=== PATIENT | female | born 1945 | race Caucasian/White ===

== ENCOUNTER 2020-05-05 22:11 | Observation (INO) | payer OTHER ==
[2020-05-05] MEDS ORDERED: Ondansetron PF 4 MG/2 ML Vial ONE (22:56)
[2020-05-05 23:01] LABS: Actual Bicarbonate (HCO3v) 21 mEq/L (22-28); Base Excess -2.9 mEq/L (-2.0 to +3.0); Chloride (VBG) 95 mmol/L (98-106); Hemoglobin (Hb) 17.4 g/dL (11.7-16.1); Potassium (VBG) 3.23 mmol/L (3.70-5.30); Puncture Site Other Site; Sodium 137.5 mmol/L (133-146)
[2020-05-05] MEDS ORDERED: Magnesium 2 GM/50 ML BAG (IN WATER) ONE (23:12)
[2020-05-05 23:14] LABS: ALT (SGPT) 19 U/L (8-55); AST (SGOT) 15 U/L (5-34); Albumin 4.6 g/dL (3.4-4.8); Alkaline Phosphatase 74 U/L (40-110); Anion Gap 24 mmol/L (10-20); BUN (Urea Nitrogen) 22 mg/dL (9.8-20.1); Bilirubin, Total 0.8 mg/dL (0.2-1.2); Calc. Creatinine Clearance 0 mL/min (70-130); Calcium 9.6 mg/dL (7.8-10.44); Carbon Dioxide 21 mmol/L (23-31); Chloride 96 mmol/L (98-107); Globulin 2.4 g/dL (2.4-3.5); Glucose 210 mg/dL (83-110); Potassium 3.3 mmol/L (3.5-5.1); Sodium 138 mmol/L (136-145)
[2020-05-05 23:45] LABS: #Monocytes 0.4 10x3/uL (0.0-1.1); #Neutrophils 6.1 10x3/uL (1.5-8.4); %Basophils 0.5 % (0.0-2.0); %Eosinophils 0.2 % (0.0-6.0); %Lymphocytes 18.1 % (18.0-47.0); %Neutrophils 75.6 % (40.0-75.0); Hemoglobin 16.4 g/dL (12.0-15.5); Mean Corpuscular HGB CONC 34.1 g/dL (32.0-36.0); Mean Corpuscular Hemoglobin 30.7 pg (27.0-33.0); Mean Corpuscular Volume 89.9 fl (81.6-98.3); Mean Platelet Volume 9.5 fl (7.4-10.4); Platelet Count 310 10x3/uL (150-450); RBC Distribution Width 12.3 % (11.5-14.5); Red Blood Cell (RBC) Count 5.35 10x6/uL (3.90-5.03)
[2020-05-06] MEDS ORDERED: Potassium Chloride 20 MEQ TAB ONE (00:40)
[2020-05-06 00:49] LABS: SARS-CoV-2 NAA Rapid Test Not Detected (NotDetected)
[2020-05-06] MEDS ORDERED: Insulin Regular 300 UNITS/3 ML VIAL ONE (01:00)
[2020-05-06] MEDS ORDERED: Dextrose 50% Abboject 50 ML SYRINGE SLOW IVP PRN (02:04)
[2020-05-06] MEDS ORDERED: Acetaminophen 325 MG TAB PO PRN (02:04)
[2020-05-06] MEDS ORDERED: Senokot S 8.6-50 MG TAB PO PRN (02:04)
[2020-05-06] MEDS ORDERED: HumaLOG 300 UNITS/3 ML VIAL SC PRN (02:04)
[2020-05-06] MEDS ORDERED: Calcium Carbonate 500 MG ChewTAB PO PRN (02:04)
[2020-05-06] MEDS ORDERED: Dextrose 5% in Water 1,000 ML IV PRN (02:04)
[2020-05-06] MEDS ORDERED: Guaifenesin DM 100-10/5 ML UDCUP PO PRN (02:04)
[2020-05-06] MEDS ORDERED: Loratadine 10 MG TAB PO PRN (02:09)
[2020-05-06] MEDS ORDERED: Electrolyte Replacement Protocol 1 EACH FS PRN (02:15)
[2020-05-06] MEDS ORDERED: Dextrose 5 % And 0.9 % NaCl 1,000 ML IV SCH (02:15)
[2020-05-06] MEDS ORDERED: Promethazine HCl 12.5 MG in Sodium Chloride 0.9% 50 ML IVPB PRN (02:20)
[2020-05-06] MEDS ORDERED: Potassium Chloride 20 MEQ TAB PO SCH ×2 (03:15→08:30)
[2020-05-06 05:57] LABS: Anion Gap 18 mmol/L (10-20); BUN (Urea Nitrogen) 16 mg/dL (9.8-20.1); Calc. Creatinine Clearance 0 mL/min (70-130); Calcium 8.8 mg/dL (7.8-10.44); Carbon Dioxide 26 mmol/L (23-31); Chloride 99 mmol/L (98-107); Glucose 101 mg/dL (83-110); Phosphorus 3.5 mg/dL (2.3-4.7); Potassium 3.2 mmol/L (3.5-5.1); Sodium 140 mmol/L (136-145)
[2020-05-06 06:47] VITALS: BP 122/47; TEMP 98.4
[2020-05-06] MEDS ORDERED: Magnesium 2 GM/50 ML 2 GM in Premix Bag 1 BAG IVPB SCH (08:00)
[2020-05-06] MEDS ORDERED: Atenolol 50 MG TAB PO SCH (09:00)
[2020-05-06] MEDS ORDERED: Lantus 1000 UNITS/10 ML VIAL SC SCH (09:00)
[2020-05-06] MEDS ORDERED: Enoxaparin Sodium 40 MG/0.4 ML SYRINGE SC SCH (09:00)
[2020-05-06] MEDS ORDERED: Alogliptin 6.25 MG TAB PO SCH (09:00)
[2020-05-06] MEDS ORDERED: Famotidine/PF 20 mg/2ml Vial SLOW IVP SCH (09:00)
[2020-05-06] MEDS ORDERED: Aspirin 81 mg Enteric Coated Tablet PO SCH (09:00)
[2020-05-06] MEDS ORDERED: Valsartan 80 MG TAB PO SCH (09:00)
[2020-05-06 09:56] VITALS: BMI 31.6
[2020-05-06 10:45] LABS: Anion Gap 15 mmol/L (10-20)
[2020-05-06 11:02] LABS: BUN (Urea Nitrogen) 13 mg/dL (9.8-20.1); Calc. Creatinine Clearance 81 mL/min (70-130); Calcium 8.6 mg/dL (7.8-10.44); Carbon Dioxide 26 mmol/L (23-31); Chloride 99 mmol/L (98-107); Glucose 231 mg/dL (83-110); Phosphorus 2.6 mg/dL (2.3-4.7); Potassium 4.2 mmol/L (3.5-5.1); Sodium 136 mmol/L (136-145)
[2020-05-06] MEDS ORDERED: Atorvastatin Calcium 40 MG TAB PO SCH (21:00)
== END 2020-05-06 15:37 | disposition home or self-care (01) ==
LOC: CSHERS 22:11 → CSHTELE 05-06 02:04 → UNDOADMOB 05-06 02:38 → CSHTELE 05-06 02:38 → INTOOBSV 05-06 02:38
PROVIDERS: ADMIT Student in an Organized Health Care Education/Training Program; ATTEND Internal Medicine
DX: E08.10 Diabetes mellitus due to underlying condition with ketoacidosis without coma (principal); E46 Unspecified protein-calorie malnutrition; E87.0 Hyperosmolality and hypernatremia; E87.6 Hypokalemia; E78.5 Hyperlipidemia, unspecified; I12.9 Hypertensive chronic kidney disease with stage 1 through stage 4 chronic kidney disease, or unspecified chronic kidney disease; N18.2 Chronic kidney disease, stage 2 (mild); I25.10 Atherosclerotic heart disease of native coronary artery without angina pectoris; Z79.899 Other long term (current) drug therapy; Z79.82 Long term (current) use of aspirin; Z79.84 Long term (current) use of oral hypoglycemic drugs; Z95.1 Presence of aortocoronary bypass graft; Z90.710 Acquired absence of both cervix and uterus; Z87.891 Personal history of nicotine dependence
CPT/HCPCS: 36415; 36416; 80048; 80053; 82010; 82805; 83735; 84100; 84484; 85025; 93005; 93010; 96365; 96366; 96372; 96375; G0378; J1650; J1815; J2405; J3475; S0028; U0002

== ENCOUNTER 2020-05-19 07:21 | Emergency (ER) | payer OTHER ==
[2020-05-19] MEDS ORDERED: Morphine 4 MG/ML VIAL ONE (08:32)
[2020-05-19] MEDS ORDERED: Ondansetron PF 4 MG/2 ML Vial ONE (08:33)
[2020-05-19 09:05] LABS: #Eosinphils 0.1 10x3/uL (0.0-0.5); #Monocytes 0.5 10x3/uL (0.0-1.1); #Neutrophils 6.9 10x3/uL (1.5-8.4); %Basophils 0.3 % (0.0-2.0); %Eosinophils 0.7 % (0.0-6.0); %Lymphocytes 17.3 % (18.0-47.0); %Monocytes 5.4 % (0.0-10.0); %Neutrophils 75.9 % (40.0-75.0); Hemoglobin 15.7 g/dL (12.0-15.5); Mean Corpuscular HGB CONC 34.4 g/dL (32.0-36.0); Mean Corpuscular Hemoglobin 31.5 pg (27.0-33.0); Mean Corpuscular Volume 91.6 fl (81.6-98.3); Mean Platelet Volume 9.6 fl (7.4-10.4); Platelet Count 285 10x3/uL (150-450); RBC Distribution Width 12.2 % (11.5-14.5); Red Blood Cell (RBC) Count 4.99 10x6/uL (3.90-5.03); White Blood Cell (WBC) Count 9.1 10x3/uL (3.5-10.5)
[2020-05-19 09:32] LABS: ALT (SGPT) 24 U/L (8-55); AST (SGOT) 19 U/L (5-34); Albumin 4.1 g/dL (3.4-4.8); Alkaline Phosphatase 81 U/L (40-110); Anion Gap 18 mmol/L (10-20); BUN (Urea Nitrogen) 18 mg/dL (9.8-20.1); Bilirubin, Total 0.9 mg/dL (0.2-1.2); Calc. Creatinine Clearance 0 mL/min (70-130); Calcium 8.9 mg/dL (7.8-10.44); Carbon Dioxide 24 mmol/L (23-31); Chloride 99 mmol/L (98-107); Globulin 2.7 g/dL (2.4-3.5); Glucose 238 mg/dL (83-110); Protein, Total 6.8 g/dL (5.8-8.1); Sodium 137 mmol/L (136-145)
[2020-05-19 09:42] LABS: Bilirubin Neg (Negative); Blood, Urine Negative (Negative); Clarity Cloudy (Clear); Glucose, Urine (Dipstick) >=1000 mg/dL (Negative); Ketone, Urine 150 mg/dL (Negative); Leukocyte 25 (Negative); Nitrite Negative (Negative); Protein, Urine (Dipstick) Negative (Neg-Trace); Specific Gravity, Urine 1.015 (1.002-1.036); Urobilinogen Normal mg/dL (Less than 2)
[2020-05-19 09:50] LABS: Bacteria/HPF 3+ HPF (None Seen); Mucous/LPF 1+ LPF (<2+); RBC/HPF 0-3 HPF (0-3); Yeast-Budding Rare HPF (None Seen)
[2020-05-19] MEDS ORDERED: cefTRIAXone\\ROCEPHIN 2 GM VIAL ONE (10:57)
== END 2020-05-19 12:10 | disposition home or self-care (01) ==
LOC: CSHERS 07:21
DX: N39.0 Urinary tract infection, site not specified (principal); I10 Essential (primary) hypertension; E78.5 Hyperlipidemia, unspecified; E11.9 Type 2 diabetes mellitus without complications; F17.210 Nicotine dependence, cigarettes, uncomplicated; Z95.1 Presence of aortocoronary bypass graft; Z79.4 Long term (current) use of insulin; Z79.899 Other long term (current) drug therapy
CPT/HCPCS: 36415; 74176; 80053; 81003; 81015; 85025; 87077; 87086; 87186; 96365; 96375; J0696; J2270; J2405

== ENCOUNTER 2022-05-07 10:04 | Outpatient (CLI) | payer MEDICARE | END 2022-05-07 10:05 | disposition home or self-care (01) | LOC: CSHMAMMO 10:04 | PROVIDERS: ATTEND Family Medicine Sports Medicine | DX: Z13.820 Encounter for screening for osteoporosis (principal); Z78.0 Asymptomatic menopausal state | CPT/HCPCS: 77080 ==